=== PATIENT | male | born 1965 | race Caucasian/White ===

== ENCOUNTER 2024-04-21 08:48 | Outpatient (CLI) | payer OTHER | END 2024-04-21 08:49 | disposition home or self-care (01) | LOC: BICCT 08:48 | PROVIDERS: ATTEND Family Medicine | DX: M23.92 Unspecified internal derangement of left knee (principal); M71.22 Synovial cyst of popliteal space [Baker], left knee; M25.462 Effusion, left knee; M17.12 Unilateral primary osteoarthritis, left knee ==